=== PATIENT | female | born 2000 | race Caucasian/White ===

== ENCOUNTER 2018-11-02 16:17 | Emergency (ER) | payer OTHER ==
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
[2018-11-02] MEDS ORDERED: Acetaminophen 325 MG Tab PO ONE (17:24)
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
[2018-11-02] MEDS ORDERED: Ondansetron 4 MG Tab.DIS PO ONE (17:59)
[2018-11-02] MEDS ORDERED: Ondansetron 4 MG Tab.DIS ONE (18:00)
== END 2018-11-02 18:06 | disposition home or self-care (01) ==
LOC: JP.ED 16:17
DX: R07.89 Other chest pain (principal); Z79.899 Other long term (current) drug therapy; V47.5XXA Car driver injured in collision with fixed or stationary object in traffic accident, initial encounter; Y92.410 Unspecified street and highway as the place of occurrence of the external cause
CPT/HCPCS: 70450; 72040; 99284; A9270